=== PATIENT | male | born 1985 | race Caucasian/White ===

== ENCOUNTER 2022-04-06 08:05 | Emergency (ER) | payer SELFPAY ==
--- NOTE | ~2022-04-06 | XR_ITS ---
EXAMINATION: XR chest 2V DATE: 04/06/2022 08:57 INDICATION: Cough. TECHNIQUE: Frontal and lateral views of the chest were obtained. COMPARISON: None. FINDINGS: The chest demonstrates clear lungs without pneumonia, pleural effusion, or pneumothorax. Th e heart size is normal. IMPRESSION: 1. No acute cardiopulmonary disease. Reviewed, dictated and finalized at location A. [employer]
[2022-04-06 08:09] VITALS: BP 145/73; PULSE 64; RESP 14; TEMP 36.1; O2SAT 98
--- NOTE | 2022-04-06 08:38 | ED.GENADULT ---
HPI - General Adult General Chief complaint: Upper Respiratory Infection Stated complaint: cough, cold symptoms Time Seen by Provider: 04/06/22 08:31 Source: RN notes reviewed History of Present Illness HPI narrative: Patient presents emergency room from home for upper respiratory infection symptoms. Patient states symptoms began approximately 10 days ago. States has had a cough this been productive of yellow sputum's been associated with a sore throat and earache that was initially worse on the left but is now worse on the right also notes some rhinorrhea states he had 1 episode of nausea vomiting approximately 7 days ago but has had none since then. He states that he has had no measured fevers he denies any chest pain shortness of breath abdominal pain or any other symptoms Related Data Allergies Allergy/AdvReac Type Severity Reaction Status Date / Time No Known Allergies Allergy Verified 10/07/17 16:24 Review of Systems Review of Systems: Gen.: Denies fevers or chills Eyes: Denies eye pain or visual change ENT: See HPI Respiratory: Denies shortness of breath reports cough CV: Denies chest pain or palpitations GI: Denies abdominal pain or diarrhea. Reports nausea and vomiting 7 days ago none since Musculoskeletal: Denies back pain or muscle pain Neuro: Denies numbness, tingling, weakness or focal weakness Skin: Denies rash Except as documented, all other systems reviewed and negative PMFSH Past Medical History Medical History (Updated 04/06/22 @ 10:27 by Rolo Das DO) Patient denies significant medical history Social History Social History (Updated 04/06/22 @ 08:40 by Rolo Das DO) Smoking status: Never smoker Exam Narrative: APPEARANCE: No acute distress, nontoxic, resting in bed EYES: EOMI HEENT: Normocephalic, atraumatic, TMs clear bilaterally bilateral turbinates boggy mild erythema no exudate posterior pharynx and bilateral tonsils no exudate uvula midline tolerating own secretions voice normal RESPIRATORY: No respiratory distress mild wheezing in the bilateral upper lung [place] no rhonchi or rales CARDIOVASCULAR: Regular rate and rhythm without murmurs rubs or gallops. ABDOMINAL: Soft, nontender, nondistended, no rebound or guarding MUSCULOSKELETAl: Moves all extremities. No clubbing, cyanosis or edema. NEURO: Awake and alert. Following commands, speech normal, no focal deficits SKIN:: Warm, dry. No rashes lesions or abrasions PSYCHIATRIC: Normal affect/mood, Course Course Emergency Course: Following breathing treatment lungs are clear to auscultation bilaterally Discussed with patient results of workup and diagnosis. Discussed need for follow-up with primary care, proper use of medication, and reasons to return to the emergency department. Patient understands and agrees to current treatment plan Vital Signs Vital signs: Vital Signs Temperature 97.0 F L 04/06/22 08:09 Pulse Rate 64 04/06/22 08:09 Respiratory Rate 14 04/06/22 08:09 Blood Pressure 145/73 H 04/06/22 08:09 Pulse Oximetry 98 04/06/22 08:09 Oxygen Delivery Room Air 04/06/22 08:09 Temperature 97.0 F L 04/06/22 08:09 Pulse Rate 63 04/06/22 09:43 Respiratory Rate 20 04/06/22 09:43 Blood Pressure 145/73 H 04/06/22 08:09 Pulse Oximetry 99 04/06/22 09:19 Oxygen Delivery Room Air 04/06/22 09:17 Medical Decision Making Vital Signs Vital Signs: Vital Signs Temperature 97.0 F L 04/06/22 08:09 Pulse Rate 64 04/06/22 08:09 Respiratory Rate 14 04/06/22 08:09 Blood Pressure 145/73 H 04/06/22 08:09 Pulse Oximetry 98 04/06/22 08:09 Oxygen Delivery Room Air 04/06/22 08:09 Temperature 97.0 F L 04/06/22 08:09 Pulse Rate 63 04/06/22 09:43 Respiratory Rate 20 04/06/22 09:43 Blood Pressure 145/73 H 04/06/22 08:09 Pulse Oximetry 99 04/06/22 09:19 Oxygen Delivery Room Air 04/06/22 09:17 Lab Data Labs: Lab Results 04/06/22 Range/Units
[2022-04-06 09:17] VITALS: O2SAT 99
[2022-04-06 09:19] VITALS: PULSE 68; RESP 12; O2SAT 99
[2022-04-06] MEDS: ACETAMINOPHEN 500 MG TABLET 1000 MG PO (09:23)
[2022-04-06] MEDS: IPRATROPIUM BR 0.02% INH SOLN 0.5 MG/2.5 ML VIAL INHALATION (09:26)
[2022-04-06 09:27] VITALS: PULSE 63; RESP 20
[2022-04-06] MEDS: ALBUTEROL SULFATE NEB 2.5 MG/3 ML INH 5 MG INHALATION (09:27)
[2022-04-06 09:43] VITALS: PULSE 63; RESP 20
[2022-04-06 09:56] LABS: Influenza A QL RT-PCR Negative (Negative); Influenza B QL RT-PCR Negative (Negative); SARS-CoV-2 RNA PCR Negative
== END 2022-04-06 11:14 | disposition home or self-care (01) ==
PROVIDERS: Emergency Provider Emergency Medicine
DX: J06.9 Acute upper respiratory infection, unspecified (principal); Z20.822 Contact with and (suspected) exposure to COVID-19
CPT/HCPCS: 71046; 87636; 94640; 99284; A9270